=== PATIENT | male | born 1980 | race Caucasian/White ===

== ENCOUNTER 2019-10-25 15:39 | Outpatient (CLI) | payer BC, SELFPAY ==
--- NOTE | ~2019-10-25 | XR_ITS ---
EXAMINATION: XR shoulder RT min 2V DATE: 10/25/2019 16:06 INDICATION: Chronic right shoulder pain. TECHNIQUE: 4 views of right shoulder were obtained. COMPARISON: None. FINDINGS: Bone alignment is normal. No fracture. Glenohumeral joint is normal. There is mild acromioc lavicular joint osteoarthritis. IMPRESSION: 1. Mild right acromioclavicular joint osteoarthritis. Reviewed, dictated and finalized at location A.
== END 2019-10-25 15:40 | disposition home or self-care (01) ==
LOC: ANHIMG 15:48
DX: M25.511 Pain in right shoulder (principal); M19.011 Primary osteoarthritis, right shoulder
CPT/HCPCS: 73030

== ENCOUNTER 2021-09-20 01:50 | Day surgery (SDC) | payer BC, SELFPAY ==
[2021-09-11 10:40] VITALS: BMI 28.6
--- NOTE | 2021-09-19 16:20 | WPDANESEPP ---
Anes - Eval Pre Procedure Procedure: Operation Date: 09/20/21 07:30 Proposed Procedures p Esophagogastroduodenoscopy - Raulito Watts MD Date/Time: 09/19/21 16:20 Pre Op Diagnosis: GERD Patient Data Age: 41 Gender: M Height: 1.7 m Weight: 83 kg Allergies Allergy/AdvReac Type Severity Reaction Status Date / Time codeine AdvReac Vomiting Verified 09/11/21 10:45 Home Medications Medication Instructions Recorded Confirmed Type atorvastatin 40 mg PO DAILY 09/11/21 09/11/21 History mboexqtuvsqr-lneo-ufcsg acid 1 tablet PO DAILY 09/11/21 09/11/21 History [Centrum] omeprazole 40 mg PO DAILY 09/11/21 09/11/21 History Patient hx anesthesia problems: none Family hx anesthesia problems: none Results Review: All pre-operative results and documents have been reviewed as part of the pre-operative evaluation. PMFSH Past Medical History Medical History Hypercholesteremia Surgical History Surgical History H/O knee surgery Hx of tonsillectomy Social History Social History Smoking status: Never smoker Alcohol intake: current Drinks per week: 1 Substance use type: does not use Living arrangements: with family Spiritual care concerns: No Exam Day of Procedure 09/19/21 16:20
[2021-09-20 06:28] VITALS: BP 103/76; PULSE 82; RESP 16; TEMP 36.6; O2SAT 100; BMI 26.9
--- NOTE | 2021-09-20 06:32 | WPDANESEPPF ---
Anes - Initial Pre Proc Eval Procedure: Operation Date: 09/20/21 07:30 Proposed Procedures p Esophagogastroduodenoscopy - Raulito Watts MD Date/Time: 09/20/21 06:32 Surgeon: Raulito Watts MD Pre Op Diagnosis: GERD Patient Data Age: 41 Gender: M Height: 1.7 m Weight: 83 kg Allergies Allergy/AdvReac Type Severity Reaction Status Date / Time codeine AdvReac Vomiting Verified 09/11/21 10:45 Home Medications Medication Instructions Recorded Confirmed Type atorvastatin 40 mg PO DAILY 09/11/21 09/11/21 History skqecldbzlxo-hucu-bnitu acid 1 tablet PO DAILY 09/11/21 09/11/21 History [Centrum] omeprazole 40 mg PO DAILY 09/11/21 09/11/21 History Patient hx anesthesia problems: none Family hx anesthesia problems: none Results Review: All pre-operative results and documents have been reviewed as part of the pre-operative evaluation. PMFSH Past Medical History Medical History Hypercholesteremia Surgical History Surgical History H/O knee surgery Hx of tonsillectomy Social History Social History Smoking status: Never smoker Alcohol intake: current Drinks per week: 1 Substance use type: does not use Living arrangements: with family Spiritual care concerns: No Anes - Eval Final PreProcedure Day of Procedure 09/20/21 06:32 Patient weight: overweight Heart: regular rate and rhythm Lungs: clear to auscultation Airway: Mallampati scale class II Neurological: alert and oriented Last oral intake: >/= 8 hours ASA classification: II Emergent: no Anesthetic plan: proceed Anesthesia type and monitoring: general GIVS and standard monitoring Results Review: All pre-operative results and documents have been reviewed as part of the pre-operative evaluation. Informed Consent: The patient's anesthetic plan and its attendant risks and benefits were discussed with the patient/family/POA. Questions were solicited and answers provided to the satisfaction of the patient/family/POA.
[2021-09-20] MEDS: LACTATED RINGERS 1,000 ML 150 ML IV CONT (06:45)
--- NOTE | 2021-09-20 07:27 | PM.HPGS ---
History of Present Illness History of Present Illness Consent: Risks, benefits, and alternatives have been discussed and questions answered. Patient agrees to proceed with procedure. Chief complaint: GERD Narrative: King Kimble is a 41 year old male with gerd doing well with omeprazole but never had egd Review of Systems Constitutional: Constitutional: Denies headache(s) and Denies weakness Eyes: Eyes: Denies blurry vision ENT: Reports Normal hearing present, Denies headache(s) and Denies neck pain Cardiovascular: Cardiovascular: Denies chest pain and Denies dyspnea Respiratory: Respiratory: Denies dyspnea Gastrointestinal: Gastrointestinal: Reports no additional gastrointestinal complaints Genitourinary: Genitourinary: Denies dysuria Musculoskeletal: Musculoskeletal: Denies neck pain Integumentary/Breasts: Skin/Breast: Denies dry skin Neurologic: Reports Normal hearing present, Denies headache(s) and Denies weakness Psychiatric: Psychiatric: Denies anxiety Endocrine: Endocrine: Denies change in body appearance Hematologic/Lymphatic: Hematologic/Lymphatic: Denies easy bleeding Allergic/Immunologic: Allergic/Immunologic: Denies urticaria PMFSH Past Medical History Medical History (Updated 09/20/21 @ 07:27 by Raulito Watts MD) GERD (gastroesophageal reflux disease) Hypercholesteremia Surgical History Surgical History H/O knee surgery Hx of tonsillectomy Social History Social History Smoking status: Never smoker Alcohol intake: current Drinks per week: 1 Substance use type: does not use Living arrangements: with family Spiritual care concerns: No Meds Home Medications and Allergies Home Medications Medication Instructions Recorded Confirmed Type atorvastatin 40 mg PO DAILY 09/11/21 09/20/21 History gpxvelljambr-ptyv-fjuer acid 1 tablet PO DAILY 09/11/21 09/20/21 History [Centrum] omeprazole 40 mg PO DAILY 09/11/21 09/20/21 History Allergies Allergy/AdvReac Type Severity Reaction Status Date / Time codeine AdvReac Vomiting Verified 09/20/21 06:35 Vital Signs Vital Signs - 24 hr 09/20/21 06:28 Temperature 97.8 F Pulse Rate 82 Respiratory Rate 16 Blood Pressure 103/76 Pulse Oximetry 100 Exam Const: General: comfortable and no acute distress HENMT: General nose exam: Normal nares present Eyes: General: appearance normal, both eyes and all related structures Neck: Neck: no JVD Resp: Auscultation: clear to auscultation bilaterally Cardio: Rate: regular rate Rhythm: regular rhythm GI: Inspection: non-distended GI Palp: Yes Soft to palpation Skin: General skin exam: normal color Neuro: General: gait normal Speech: normal speech Extrem: General: normal to inspection Psych: Mental Status: mental status grossly normal Assessment and Plan Assessment and plan (1) GERD (gastroesophageal reflux disease): Code(s): K21.9 - Gastro-esophageal reflux disease without esophagitis Status: Acute Assessment and Plan: egd with bx
[2021-09-20 08:14] VITALS: BP 101/70; PULSE 64; RESP 22; O2SAT 97
[2021-09-20 08:20] VITALS: BP 101/64; PULSE 67; RESP 16; O2SAT 100
[2021-09-20 08:30] VITALS: BP 108/72; PULSE 70; RESP 15; O2SAT 100
== END 2021-09-20 08:53 | disposition home or self-care (01) ==
PROVIDERS: PCP Emergency Medicine; Visit Provider Internal Medicine Gastroenterology
PROC: 0DJ08ZZ Inspection of Upper Intestinal Tract, Via Natural or Artificial Opening Endoscopic (ICD-10-PCS; CPT 43235; principal; 2021-09-20 07:30)
DX: K21.00 Gastro-esophageal reflux disease with esophagitis, without bleeding (principal); K29.50 Unspecified chronic gastritis without bleeding; E78.00 Pure hypercholesterolemia, unspecified
CPT/HCPCS: 43239; 88305; J2704; J7120

== ENCOUNTER 2023-10-30 15:11 | Outpatient (CLI) | payer BC, SELFPAY ==
--- NOTE | ~2023-10-30 | XR_ITS ---
XR chest 2V 10/30/2023 15:24 Indication: Cough for 3 weeks Procedure: 2 view chest Comparison: No prior studies for comparison. Findings: Heart size normal. No focal air space disease, pulmonary edema, pleural effusion or suspect ed pneumothorax. Impression: 1: No acute cardiopulmonary disease. Reviewed, dictated and finalized at location A. Impression: 1: No acute cardiopulmonary disease.
== END 2023-10-30 15:12 ==
PROVIDERS: PCP Emergency Medicine; Visit Provider Emergency Medicine
DX: J45.991 Cough variant asthma (principal)
CPT/HCPCS: 71046